=== PATIENT | male | born 1970 | race African-American/Black ===

== ENCOUNTER 2018-12-21 01:45 | Emergency (ER) | payer MEDICAID ==
[~2018-12-21] VITALS: Ht 182.9 cm; Wt 81.8 kg
[~2018-12-21 01:45] MED LIST: AMOX500C2 PO
[2018-12-21] MEDS ORDERED: LIDOCAINE 5% TRANSDERMAL PATCH TD ONE (03:00)
[2018-12-21] MEDS ORDERED: CYCLOBENZAPRINE HCL 10 MG TABLET PO ONE (03:00)
[2018-12-21] MEDS ORDERED: ACETAMINOPHEN 325 MG TABLET PO ONE (03:00)
[2018-12-21 03:47] VITALS: BP 128/78
== END 2018-12-21 03:57 | disposition home or self-care (01) ==
LOC: EMS 01:45
DX: S46.911A Strain of unspecified muscle, fascia and tendon at shoulder and upper arm level, right arm, initial encounter (principal); F17.210 Nicotine dependence, cigarettes, uncomplicated; X58.XXXA Exposure to other specified factors, initial encounter; Y93.89 Activity, other specified; Y92.89 Other specified places as the place of occurrence of the external cause; Y99.8 Other external cause status

== ENCOUNTER 2025-01-19 09:11 | Emergency (ER) | payer MEDICAID, OTHER ==
[~2025-01-19] VITALS: Ht 182.9 cm; Wt 79.5 kg
[2025-01-19 09:15] VITALS: BP 132/68; PULSE 91; RESP 18; TEMP 98.1; O2SAT 99
[2025-01-19] MEDS: CEPHALEXIN MONOHYDRATE 500 MG CAPSULE PO ONE (09:33)
[2025-01-19] MEDS: SULFAMETHOX/TRIMETH DS 800-160 MG/TABLET PO ONE (09:33)
[2025-01-19] MEDS ORDERED: ACET-3385 PO (09:35)
[2025-01-19] MEDS ORDERED: SULF-261 PO (09:35)
[2025-01-19] MEDS ORDERED: CEPH-558 PO (09:35)
[2025-01-19] MEDS: ACETAMINOPHEN 500 MG TABLET PO ONE (09:46)
== END 2025-01-19 10:12 | disposition home or self-care (01) ==
LOC: EMS 09:14
DX: L03.012 Cellulitis of left finger (principal); F17.210 Nicotine dependence, cigarettes, uncomplicated; Z90.49 Acquired absence of other specified parts of digestive tract
CPT/HCPCS: 10060; 99284; Z7502; Z7610

== ENCOUNTER 2025-05-03 12:53 | Emergency (ER) | payer SELFPAY ==
[~2025-05-03] VITALS: Ht 182.9 cm; Wt 78.6 kg
[~2025-05-03 12:53] MED LIST changes: +ACET-3385 PO; -AMOX500C2 PO; +CEPH-558 PO; +SULF1TAB94 PO
[2025-05-03 13:14] VITALS: TEMP 97.7
[2025-05-03] MEDS: KETOROLAC TROMETHAMINE 30 MG/ML VIAL IM ONE (14:35)
[2025-05-03] MEDS: LIDOCAINE 5% TRANSDERMAL PATCH TD ONE (14:36)
[2025-05-03 14:38] LABS: APPEARANCE,URINE CLEAR (CLEAR); GLUCOSE, URINE (UA) NEGATIVE (NEGATIVE); LEUKOCYTE ESTERASE ,URINE NEGATIVE (NEGATIVE); NITRATE,URINE NEGATIVE (NEGATIVE); OCCULT BLOOD,URINE NEGATIVE (NEGATIVE); SPECIFIC GRAVITIY, URINE 1.028 (1.003-1.030)
[2025-05-03 14:52] LABS: PLATELET COUNT (AUTO) 242 K/uL (150-450); RED BLOOD CELL COUNT(AUTO) 4.57 MIL/uL (4.50-5.90); RED CELL DISTRIBUTION WIDTH 12.8 % (11.5-14.5); WHITE BLOOD COUNT (AUTO) 5.9 K/uL (4.5-11.0)
[2025-05-03 15:02] LABS: CALCIUM, TOTAL 8.6 mg/dL (8.8-10.5); CREATININE 1.08 mg/dL (0.60-1.30); GLOMERULAR FILTR. RATE CALC > 60 mL/min (>60); GLUCOSE,RANDOM 91 mg/dL (70-110); SODIUM SERUM 139 mmol/L (136-145); UREA NITROGEN, BLOOD 13 mg/dL (7-18)
[2025-05-03 15:06] LABS: ASPARTATE AMINOTRANSFERASE 23 U/L (15-37); TOTAL PROTEIN, SERUM 6.7 g/dL (6.4-8.2)
[2025-05-03] MEDS ORDERED: IBUP-1492 PO (15:40)
[2025-05-03 15:50] VITALS: BP 118/78; PULSE 65; RESP 18; O2SAT 98
== END 2025-05-03 15:55 | disposition home or self-care (01) ==
LOC: EMS 13:09
DX: M54.50 Low back pain, unspecified (principal); F17.210 Nicotine dependence, cigarettes, uncomplicated; Z90.49 Acquired absence of other specified parts of digestive tract
CPT/HCPCS: 80053; 81001; 85025; 99283; J1885